=== PATIENT | female | born 1990 | race Caucasian/White ===

== ENCOUNTER 2018-01-17 07:22 | Emergency (ER) | payer OTHER, MEDICAID ==
[~2018-01-17] VITALS: Ht 162.6 cm; Wt 82.0 kg
[2018-01-17] MEDS ORDERED: bayer (07:47)
[2018-01-17] MEDS ORDERED: FAMOTIDINE 20MG/2ML VIAL IV STA (08:02)
[2018-01-17] MEDS ORDERED: MORPHINE SULFATE 4 MG/ML CPJ (NOT FOR IM USE) IV STA (08:02)
[2018-01-17] MEDS ORDERED: ONDANSETRON HCL 4MG/2ML VIAL IV STA (08:02)
[2018-01-17 08:23] LABS: BASOPHILS % 0.9 % (0.0-2.0); EOSINOPHILS % 1.4 % (0.0-5.0); HEMATOCRIT. 38.4 % (36.0-48.0); HEMOGLOBIN. 12.8 g/dL (12.0-16.0); LYMPHOCYTES % 15.7 % (20.0-50.0); MEAN CORPUSCULAR HEMOGLOBIN 30.7 pg (28.0-32.0); MEAN CORPUSCULAR VOLUME 91.7 fL (81.0-99.0); MEAN PLATELET VOLUME 7.9 fl (7.4-10.4); MONOCYTES % 5.3 % (2.0-8.0); NEUTROPHILS % 76.7 % (40.0-76.0); PLATELET 340 x1000/uL (130-400); RED BLOOD CELL COUNT 4.18 mill/uL (4.2-5.4); RED CELL DISTRIBUTION WIDTH 12.9 % (11.6-14.6)
[2018-01-17 08:42] LABS: CLARITY URINE CLOUDY (CLEAR); COLOR URINE YELLOW (YELLOW); KETONES URINE NEGATIVE (NEGATIVE); LEUKOCYTE ESTERASE URINE 3+ (NEGATIVE); NITRITE URINE NEGATIVE (NEGATIVE); OCCULT BLOOD URINE NEGATIVE (NEGATIVE); PH URINE 5.5 (4.5-8.0); PROTEIN URINE NEGATIVE (NEGATIVE); SPECIFIC GRAVITY URINE 1.015 (1.005-1.030); UROBILINOGEN URINE 0.2 E.U./dL (0.2-1.0)
[2018-01-17 08:52] LABS: HCG SCREEN NEGATIVE
[2018-01-17 09:31] LABS: CHLORIDE 108 mEq/L (98-107)
[2018-01-17 10:35] LABS: INR 0.9; PARTIAL THROMBOPLASTIN TIME 26.1 sec (23.4-31.0); PROTHROMBIN TIME 9.8 sec (9.4-11.6)
[2018-01-17] MEDS ORDERED: CEFTRIAXONE 1 G PREMIX 50 ML IV ONE (11:30)
[2018-01-17 13:30] VITALS: BP 93/51
[2018-01-17] MEDS ORDERED: IOHEXOL-300 100 ML BOTTLE ONE (15:15)
== END 2018-01-17 13:34 | disposition home or self-care (01) ==
LOC: ER 08:56
DX: R10.2 Pelvic and perineal pain (principal); N39.0 Urinary tract infection, site not specified; D21.9 Benign neoplasm of connective and other soft tissue, unspecified; I10 Essential (primary) hypertension
CPT/HCPCS: 36415; 71045; 74177; 76705; 80053; 81003; 81025; 83690; 84484; 84703; 85025; 85610; 85730; 87086; 93005; 96365; 96375; 99285; J0696; J2405; J3490; Q9967